=== PATIENT | male | born 1985 | race Caucasian/White ===

== ENCOUNTER 2020-06-10 12:20 | Emergency (ER) | payer MEDICAID, OTHER ==
[~2020-06-10] VITALS: Ht 167.6 cm; Wt 141.4 kg
[~2020-06-10 12:20] MED LIST: HYDR-4383 PO; IBUP-1986 PO
[2020-06-10 12:45] VITALS: BP 185/110
[2020-06-10] MEDS ORDERED: tetanus & diphtheria toxoid (Td) vaccine 0.5ml IMVAC ONE (15:20)
[2020-06-10] MEDS ORDERED: TETanus/Pertussis (Acell)/Diphther VAC/PF (Tdap-Adult) 0.5ml syringe IMVAC ONE (15:30)
== END 2020-06-10 16:05 | disposition home or self-care (01) ==
LOC: ER 12:21
DX: S61.215A Laceration without foreign body of left ring finger without damage to nail, initial encounter (principal); K21.9 Gastro-esophageal reflux disease without esophagitis; G89.29 Other chronic pain; F12.90 Cannabis use, unspecified, uncomplicated; Z72.89 Other problems related to lifestyle; Z79.899 Other long term (current) drug therapy; W26.8XXA Contact with other sharp object(s), not elsewhere classified, initial encounter; Y93.89 Activity, other specified; Y92.89 Other specified places as the place of occurrence of the external cause; Y99.8 Other external cause status
CPT/HCPCS: 73140; 90471; 90715; 99283

== ENCOUNTER 2022-03-16 08:25 | Inpatient (IN) | payer OTHER ==
[~2022-03-16] VITALS: Ht 167.6 cm; Wt 136.0 kg
[2022-03-16] MEDS ORDERED: diltiazem 5mg/ml 5ml inj. IV ONE (09:25)
[2022-03-16 09:31] LABS: BASOPHILS % (AUTO) 0.2 % (0-1); EOSINOPHILS % (AUTO) 0.2 % (0-6); HEMATOCRIT 46.6 % (42.0-52.0); LYMPHOCYTES % (AUTO) 21.3 % (21-51); MEAN CORPUSCULAR HEMOGLOBIN 30.9 PG (27.0-31.0); MEAN CORPUSCULAR HGB CONC 34.4 g/dL (33.0-36.5); MEAN CORPUSCULAR VOLUME 89.7 FL (78-98); MEAN PLATELET VOLUME 7.8 FL (7.4-10.4); MONOCYTES # (AUTO) 0.4 X10'3 (0-0.9); MONOCYTES % (AUTO) 7.6 % (2-12); NEUTROPHILS # (AUTO) 3.2 X10'3 (1.8-7.7); NEUTROPHILS % (AUTO) 70.7 % (42-75); PLATELET COUNT 83 X10'3 (140-440); RED BLOOD COUNT 5.19 X10'6 (4.70-6.10); RED CELL DISTRIBUTION WIDTH 13.2 % (11.5-14.5); WHITE BLOOD COUNT 4.6 X10'3 (4.5-11.0)
[2022-03-16 09:35] LABS: ALANINE AMINOTRANSFERASE 78 U/L (12-78); ALBUMIN 4.1 G/DL (3.4-5.0); ALKALINE PHOSPHATASE 83 IU/L (46-116); ANION GAP 9 (8-16); ASPARTATE AMINO TRANSFERASE 67 U/L (10-37); BILIRUBIN,TOTAL 0.8 MG/DL (0.1-1.0); BLOOD UREA NITROGEN 13 MG/DL (7-18); BUN/CREATININE RATIO 16.9 (5.4-32.0); CALCIUM 8.3 MG/DL (8.5-10.1); CHLORIDE 104 MMOL/L (99-107); CREATININE 0.77 MG/DL (0.60-1.10); GLUCOSE 147 MG/DL (70-104); SODIUM 139 MMOL/L (135-145); TOTAL CARBON DIOXIDE 26.2 MMOL/L (24-32); TOTAL PROTEIN 8.3 G/DL (6.4-8.2); eGFR > 90 ML/MIN
[2022-03-16] MEDS ORDERED: metoprolol tartrate 1mg/ml inj IV ONE (10:00)
[2022-03-16] MEDS ORDERED: iohexol 350MG/ML 100ml bottle IV ONE (10:09)
[2022-03-16] MEDS: diltiazem-NS 100mg/100ml 100 ML IV SCH (10:34)
[2022-03-16] MEDS ORDERED: magnesium 4gm in 100ml NS 100 ML IV PRN (11:40)
[2022-03-16] MEDS ORDERED: acetaminophen 325mg tablet PO PRN (11:40)
[2022-03-16] MEDS ORDERED: magnesium 2GM in 50ml NS 50 ML IV PRN (11:40)
[2022-03-16] MEDS ORDERED: potassium CL 10mEq/100ml bag 100 ML IV PRN (11:40)
[2022-03-16] MEDS ORDERED: diltiazem-D5W 125mg/125ml 125 ML IV SCH (11:40)
[2022-03-16] MEDS ORDERED: magnesium Cl slow-release 64mg tablet PO PRN (11:40)
[2022-03-16] MEDS ORDERED: POTASSIUM BICARB 20meq eff tab 20 MEQ TABLET.EFF PO PRN ×2 (11:40)
[2022-03-16] MEDS: normal saline 1000ml 1,000 ML IV SCH (11:40)
[2022-03-16] MEDS ORDERED: ondansetron/PF 4mg/2ml inj IV PRN (11:40)
[2022-03-16 12:04] LABS: CHOL/HDL RATIO 4.2 (0.00-4.99); CHOLESTEROL 190 MG/DL (0-200); HDL CHOLESTEROL 45 MG/DL (35-60); LDL CHOLESTEROL 112 MG/DL (50-100); TRIGLYCERIDES 149 MG/DL (20-135)
[2022-03-16 12:11] LABS: CLARITY,URINE CLEAR (Clear); COLOR,URINE YELLOW (Yellow); GLUCOSE, URINE NEGATIVE (Neg); KETONES,URINE NEGATIVE (Neg); LEUKOCYTE ESTERASE ,URINE NEGATIVE (Neg); NITRITES, URINE NEGATIVE (Neg); OCCULT BLOOD,URINE TRACE-INTACT (Neg); PH,URINE 6.5 (4.8-8.0); PROTEIN,URINE 30 mg/dl (Neg); UROBILINOGEN,URINE 0.2 E.U/dL (0.2-1.0)
[2022-03-16 12:17] LABS: URINE AMPHETAMINE SCREEN NEGATIVE (Neg); URINE BARBITUATE SCREEN NEGATIVE (Neg); URINE BENZODIAZEPINES SCREEN NEGATIVE (Neg); URINE CANNABINOID SCREEN POSITIVE (Neg); URINE COCAINE SCREEN NEGATIVE (Neg); URINE METHADONE SCREEN NEGATIVE (Neg); URINE OPIATE SCREEN NEGATIVE (Neg); URINE PHENCYCLIDINE SCREEN NEGATIVE (Neg)
[2022-03-16 12:18] LABS: UA COLLECTION TYPE VOIDED
[2022-03-16 12:22] LABS: BACTERIA,URINE NONE SEEN /HPF (Neg); HEMOGLOBIN A1C 4.6 % (4.5-6.2); MUCUS STRANDS NONE SEEN /LPF (Neg); RBC,URINE 0-2 /HPF (0-2); SQUAMOUS EPITHELIAL CELL,UR FEW /LPF (FEW); WBC,URINE 0-4 /HPF (0-4)
[2022-03-16] MEDS ORDERED: NO HOME MEDS (12:27)
[2022-03-16] MEDS: acetaminophen 325mg tablet PO PRN ×2 (19:01→20:07)
[2022-03-16] MEDS: K and/or MAG REPLACEMENT MC SCH (19:57)
[2022-03-16] MEDS ORDERED: heparin, porcine 5000 units/ml vial SQ SCH (20:00)
[2022-03-16] MEDS: docusate sod 100mg capsule PO SCH (20:05)
[2022-03-16] MEDS ORDERED: temazepam 15mg capsule PO PRN (21:00)
[2022-03-17] MEDS: normal saline 1000ml 1,000 ML IV SCH (02:18)
[2022-03-17 06:00] VITALS: BP 146/78
--- NOTE | 2022-03-17 06:02 | NUR ---
Pt arrived on floor in a wheelchair. Tucked in bed. 96.8 temporal temp BP 146/78 HR 80 93% O2 sat RA On tele number 23 Addendum: 03/17/22 at 0643 by Baylee Dumont RN At 0555 03/17/22 Pt brought up from ED on a cardizem drip at 10. brake liner aware and will handle drip.
--- NOTE | 2022-03-17 06:39 | NUR ---
Problems reprioritized. Patient report given, questions answered & plan of care reviewed with JERALD Parish.
--- NOTE | 2022-03-17 06:40 | NUR ---
Patient in room ED 8. I have received report from Baylee MARQUES and had the opportunity to ask questions and assume patient care.
[2022-03-17] MEDS: K and/or MAG REPLACEMENT MC SCH (08:00)
[2022-03-17] MEDS: diltiazem-NS 100mg/100ml 100 ML IV SCH (08:47)
[2022-03-17 08:48] LABS: BASOPHILS % (AUTO) 0.2 % (0-1); EOSINOPHILS % (AUTO) 0.6 % (0-6); HEMATOCRIT 44.9 % (42.0-52.0); HEMOGLOBIN 15.7 g/dl (14.0-17.9); LYMPHOCYTES # (AUTO) 1.5 X10'3 (1.1-4.8); LYMPHOCYTES % (AUTO) 33.1 % (21-51); MEAN CORPUSCULAR HEMOGLOBIN 31.4 PG (27.0-31.0); MEAN CORPUSCULAR HGB CONC 34.9 g/dL (33.0-36.5); MEAN CORPUSCULAR VOLUME 90.1 FL (78-98); MEAN PLATELET VOLUME 7.9 FL (7.4-10.4); MONOCYTES # (AUTO) 0.4 X10'3 (0-0.9); MONOCYTES % (AUTO) 8.7 % (2-12); NEUTROPHILS # (AUTO) 2.7 X10'3 (1.8-7.7); NEUTROPHILS % (AUTO) 57.4 % (42-75); PLATELET COUNT 88 X10'3 (140-440); RED BLOOD COUNT 4.98 X10'6 (4.70-6.10); RED CELL DISTRIBUTION WIDTH 13.1 % (11.5-14.5); WHITE BLOOD COUNT 4.7 X10'3 (4.5-11.0)
[2022-03-17] MEDS: docusate sod 100mg capsule PO SCH (08:48)
[2022-03-17 09:18] LABS: ALANINE AMINOTRANSFERASE 68 U/L (12-78); ALBUMIN 3.6 G/DL (3.4-5.0); ALBUMIN/GLOBULIN RATIO 0.9 (1.1-1.5); ALKALINE PHOSPHATASE 61 IU/L (46-116); ANION GAP 9 (8-16); ASPARTATE AMINO TRANSFERASE 69 U/L (10-37); BLOOD UREA NITROGEN 12 MG/DL (7-18); BUN/CREATININE RATIO 16.9 (5.4-32.0); CALCIUM 8.3 MG/DL (8.5-10.1); CHLORIDE 106 MMOL/L (99-107); CREATININE 0.71 MG/DL (0.60-1.10); GLUCOSE 145 MG/DL (70-104); POTASSIUM 4.2 MMOL/L (3.5-5.1); SODIUM 138 MMOL/L (135-145); TOTAL CARBON DIOXIDE 23.3 MMOL/L (24-32); TOTAL PROTEIN 7.7 G/DL (6.4-8.2); eGFR > 90 ML/MIN
[2022-03-17] MEDS: diltiazem 30mg tablet PO SCH ×2 (10:23→14:00)
[2022-03-17 11:00] VITALS: BP 142/80
[2022-03-17] MEDS ORDERED: LISI10TA27 PO (13:59)
[2022-03-17] MEDS ORDERED: diltiazem 30mg tablet PO SCH ×2 (14:00)
--- NOTE | 2022-03-17 15:47 | NUR ---
Patient stable for discharge per Dr. Solis. All discharge instructions reviewed with patient and all questions answered. Patient verbalized understanding. New prescription e-scripted to [facility] on [facility]. PIV discontinued, cannula intact, tele discontinued. All belongings collected and sent with patient. Pt wheeled to lobby via nursing staff and drove himself home.
== END 2022-03-17 14:50 | disposition home or self-care (01) | DRG 309 ==
LOC: ER 08:25 → ED HOLD 11:45 → EDBEDREQ 03-17 04:44 → PCU 3S 03-17 05:55
PROVIDERS: ADMIT Internal Medicine; ATTEND Internal Medicine
PROC: B32T1ZZ Computerized Tomography (CT Scan) of Left Pulmonary Artery using Low Osmolar Contrast (ICD-10-PCS; principal; 2022-03-16)
PROC: B3201ZZ Computerized Tomography (CT Scan) of Thoracic Aorta using Low Osmolar Contrast (ICD-10-PCS; 2022-03-16)
PROC: B32S1ZZ Computerized Tomography (CT Scan) of Right Pulmonary Artery using Low Osmolar Contrast (ICD-10-PCS; 2022-03-16)
DX: I48.19 Other persistent atrial fibrillation (principal); Z68.42 Body mass index [BMI] 45.0-49.9, adult; D69.59 Other secondary thrombocytopenia; E66.01 Morbid (severe) obesity due to excess calories; F12.90 Cannabis use, unspecified, uncomplicated; I10 Essential (primary) hypertension; X58.XXXA Exposure to other specified factors, initial encounter; S93.401A Sprain of unspecified ligament of right ankle, initial encounter; Z20.822 Contact with and (suspected) exposure to COVID-19; G89.29 Other chronic pain; K21.9 Gastro-esophageal reflux disease without esophagitis; Z86.16 Personal history of COVID-19; Z71.41 Alcohol abuse counseling and surveillance of alcoholic; Z71.51 Drug abuse counseling and surveillance of drug abuser; Y93.89 Activity, other specified; Y92.89 Other specified places as the place of occurrence of the external cause; Y99.8 Other external cause status; Z72.89 Other problems related to lifestyle
CPT/HCPCS: 36415; 71045; 71275; 73610; 80053; 80061; 80305; 81001; 83036; 83880; 84443; 84484; 85025; 87081; 87811; 93306; 96374; 96375; 97116; 97161; 97530; 99291; G0378; J1644; J3490; J7030; Q9967